=== PATIENT | female | born 1965 | race Caucasian/White ===

== ENCOUNTER 2019-09-24 08:45 | Emergency (ER) | payer MEDICAID ==
[~2019-09-24] VITALS: Ht 157.5 cm; Wt 60.0 kg
[2019-09-24] MEDS ORDERED: IV NORMAL SALINE 500ML BAG 500 ML IV ONE (09:15)
[2019-09-24 09:31] LABS: BASO # 0.1 x10^3/uL (0.0-0.2); BASO % 0 % (0-3); EOS % 0 % (0-3); HEMATOCRIT 37.3 % (36.0-47.0); HEMOGLOBIN 12.1 g/dL (12.0-15.5); LYMPH # 3.2 x10^3/uL (1.0-4.8); LYMPH % 17 % (24-48); MEAN CORPUSCULAR HEMOGLOBIN 31 pg (25-35); MEAN CORPUSCULAR HGB CONC 32 g/dL (31-37); MEAN CORPUSCULAR VOLUME 94 fL (79-100); MONO # 2.3 x10^3/uL (0.0-1.1); MONO % 12 % (0-9); NEUT # 13.8 x10^3/uL (1.8-7.7); NEUT % 71 % (31-73); PLATELET COUNT 566 x10^3/uL (140-400); RED BLOOD COUNT 3.96 x10^6/uL (3.50-5.40); RED CELL DISTRIBUTION WIDTH 16.1 % (11.5-14.5); WHITE BLOOD COUNT 19.5 x10^3/uL (4.0-11.0)
[2019-09-24 09:37] LABS: CALCIUM 8.7 mg/dL (8.5-10.1); CREATININE 0.8 mg/dL (0.6-1.0); POTASSIUM 4.3 mmol/L (3.5-5.1)
--- NOTE | 2019-09-24 10:03 | PHYS DOC ---
Past Medical History Past Medical History: Diabetes-Type II, High Cholesterol, Hypothyroid, Seizure Past Surgical History: Other Additional Past Surgical Histo: unknown Smoking Status: Never Smoker Alcohol Use: None General Adult EDM: Chief Complaint: SEIZURE HPI: HPI: Patient is a 54-year-old female from [facility] who has a history of seizure disorder who had a brief seizure this morning. She has been taking her seizure medicine. She has been more anxious than normal lately. She has had no fever. She has been tested positive for COVID-19 at some time in the recent past. Review of Systems: Review of Systems: Review of systems is unobtainable secondary to the altered mental status of the patient at baseline [] Heart Score: Risk Factors: Risk Factors: DM, Current or recent (<one month) smoker, HTN, HLP, family history of CAD, obesity. Risk Scores: Score 0 - 3: 2.5% MACE over next 6 weeks - Discharge Home Score 4 - 6: 20.3% MACE over next 6 weeks - Admit for Clinical Observation Score 7 - 10: 72.7% MACE over next 6 weeks - Early Invasive Strategies Current Medications: Current Medications Medications (Trade) Dose Ordered Sig/Bo Start Time Stop Time Status Last Admin Dose Admin Sodium Chloride 500 ml @ 500 mls/hr 1X ONCE 09/24/19 09:15 09/24/19 10:14 09/24/19 09:33 500 MLS/HR Allergies: Allergies: Allergies Coded Allergies Type Severity Reaction Last Updated Verified Iodinated Contrast Media Allergy Unknown 09/24/19 Yes iodine Allergy Unknown 09/24/19 Yes simvastatin Allergy Unknown 09/24/19 Yes Physical Exam: PE: Constitutional: Well developed, well nourished, no acute distress, non-toxic appearance. [] HENT: Normocephalic, atraumatic, bilateral external ears normal, oropharynx moist, no oral exudates, nose normal. [] Eyes: PERRLA, EOMI, conjunctiva normal, no discharge. [] Neck: Normal range of motion, no tenderness, supple, no stridor. [] Cardiovascular:Heart rate regular rhythm, no murmur [] Lungs & Thorax: Bilateral breath sounds clear to auscultation [] Abdomen: Bowel sounds normal, soft, no tenderness, no masses, no pulsatile john s. [] Skin: Warm, dry, no erythema, no rash. [] Back: No tenderness, no CVA tenderness. [] Extremities: No tenderness, no cyanosis, no clubbing, ROM intact, no edema. [] Neurologic: Alert no distress, normal motor function, normal sensory function, no focal deficits noted. [] Psychologic: Very anxious. [] Current Patient Data: Labs: Laboratory Tests Test 09/24/19 08:50 09/24/19 09:15 Glucose (Fingerstick) 97 mg/dL (70-99) White Blood Count 19.5 x10^3/uL (4.0-11.0) H Red Blood Count 3.96 x10^6/uL (3.50-5.40) Hemoglobin 12.1 g/dL (12.0-15.5) Hematocrit 37.3 % (36.0-47.0) Mean Corpuscular Volume 94 fL (79-100) Mean Corpuscular Hemoglobin 31 pg (25-35) Mean Corpuscular Hemoglobin Concent 32 g/dL (31-37) Red Cell Distribution Width 16.1 % (11.5-14.5) H Platelet Count 566 x10^3/uL (140-400) H Neutrophils (%) (Auto) 71 % (31-73) Lymphocytes (%) (Auto) 17 % (24-48) L Monocytes (%) (Auto) 12 % (0-9) H Eosinophils (%) (Auto) 0 % (0-3) Basophils (%) (Auto) 0 % (0-3) Neutrophils # (Auto) 13.8 x10^3/uL (1.8-7.7) H Lymphocytes # (Auto) 3.2 x10^3/uL (1.0-4.8) Monocytes # (Auto) 2.3 x10^3/uL (0.0-1.1) H Eosinophils # (Auto) 0.0 x10^3/uL (0.0-0.7) Basophils # (Auto) 0.1 x10^3/uL (0.0-0.2) Platelet Estimate Pending Sodium Level 138 mmol/L (136-145) Potassium Level 4.3 mmol/L (3.5-5.1) Chloride Level 98 mmol/L (98-107) Carbon Dioxide Level 33 mmol/L (21-32) H Anion Gap 7 (6-14) Blood Urea Nitrogen 18 mg/dL (7-20) Creatinine 0.8 mg/dL (0.6-1.0) Estimated GFR (Cockcroft-Gault) 75.0 Glucose Level 114 mg/dL (70-99) H Calcium Level 8.7 mg/dL (8.5-10.1) Laboratory Tests 09/24/19 09:15 Laboratory Tests 09/24/19 09:15 Vital Signs: Vital Signs Date Time Temp Pulse Resp B/P (MAP) Pulse Ox O2 Delivery O2 Flow Rate FiO2 09/24/19 08:45 99.1 126 16 143/72 (95) 96 Room Air 99.1 EKG: EKG: [] Radiology/Procedures: Radiology/Procedures: [] Course & Med Decision Making: Course & Med Decision Making Pertinent Labs and Imaging studies reviewed. (See chart for details) [] Dragon Disclaimer: Dragon Disclaimer: This electronic medical record was generated, in whole or in part, using a voice recognition dictation system. Departure Departure Impression: Primary Impression: Seizure Disposition: 01 HOME, SELF-CARE Condition: STABLE Patient Instructions: Seizure, Adult Additional Instructions: Return to the emergency department with any new or concerning symptoms SHAWN VALENTION DO September 24, 2019 10:03
[2019-09-24 10:17] LABS: % BANDS 4 % (0-9); % LYMPHS 22 % (24-48); % MONOS 8 % (0-10); % MYELOS 1 % (0-0); % SEGS 65 % (35-66); ANISOCYTOSIS PRESENT; PLT ESTIMATE INCREASED (ADEQUATE)
[2019-09-24 10:18] LABS: POLYCHROMASIA PRESENT
[2019-09-24 10:46] VITALS: BP 136/78
== END 2019-09-24 12:45 | disposition home or self-care (01) ==
LOC: ER 08:45
DX: G40.909 Epilepsy, unspecified, not intractable, without status epilepticus (principal); R41.82 Altered mental status, unspecified; E11.9 Type 2 diabetes mellitus without complications; E78.00 Pure hypercholesterolemia, unspecified; E03.9 Hypothyroidism, unspecified; Z88.1 Allergy status to other antibiotic agents; Z88.8 Allergy status to other drugs, medicaments and biological substances
CPT/HCPCS: 36415; 80048; 82962; 85007; 85025; 96360; 99284; J7040

== ENCOUNTER 2020-01-18 18:25 | Emergency (ER) | payer BC, MEDICAID ==
[~2020-01-18] VITALS: Ht 162.6 cm; Wt 54.5 kg
[2020-01-18 19:07] LABS: BASO % 1 % (0-3); EOS % 0 % (0-3); HEMATOCRIT 36.7 % (36.0-47.0); HEMOGLOBIN 12.5 g/dL (12.0-15.5); LYMPH # 2.4 x10^3/uL (1.0-4.8); LYMPH % 38 % (24-48); MEAN CORPUSCULAR HEMOGLOBIN 32 pg (25-35); MEAN CORPUSCULAR HGB CONC 34 g/dL (31-37); MEAN CORPUSCULAR VOLUME 95 fL (79-100); MONO # 0.7 x10^3/uL (0.0-1.1); MONO % 11 % (0-9); NEUT # 3.3 x10^3/uL (1.8-7.7); NEUT % 51 % (31-73); PLATELET COUNT 338 x10^3/uL (140-400); RED BLOOD COUNT 3.89 x10^6/uL (3.50-5.40); WHITE BLOOD COUNT 6.5 x10^3/uL (4.0-11.0)
[2020-01-18 19:14] LABS: ANION GAP 8 (6-14); BLOOD UREA NITROGEN 19 mg/dL (7-20); CALCIUM 9.1 mg/dL (8.5-10.1); CARBON DIOXIDE 30 mmol/L (21-32); CHLORIDE 100 mmol/L (98-107); CREATININE 0.9 mg/dL (0.6-1.0); GFR 65.5; GLUCOSE 188 mg/dL (70-99); POTASSIUM 4.3 mmol/L (3.5-5.1); SODIUM 138 mmol/L (136-145)
--- NOTE | 2020-01-18 20:36 | RAD ---
Exam: Chest one view INDICATION: Seizures TECHNIQUE: Frontal view of the chest Comparisons: None FINDINGS: The cardiomediastinal silhouette and pulmonary vessels are within normal limits. The lung and pleural spaces are clear. IMPRESSION: No acute cardiopulmonary process. Electronically signed by: Anoop Castro MD (01/18/2020 8:33 PM) [id number]
--- NOTE | 2020-01-18 20:39 | PHYS DOC ---
Past Medical History Past Medical History: Diabetes-Type II, High Cholesterol, Hypothyroid, Seizure, Other Additional Past Medical Histor: Behavioral, Intellectual Disabilities Past Surgical History: Other Additional Past Surgical Histo: unknown Smoking Status: Never Smoker Alcohol Use: None General Adult EDM: Chief Complaint: MECHANICAL FALL HPI: HPI: The history was obtained from the patient and EMS. Patient is a 54-year-old female with H intellectual disability, seizure disorder, hyperlipidemia who presents with a chief complaint of seizure-like activity. Per EMS patient had a witnessed one 2-minute seizure episode. She does have a history of seizures. She does take valproic acid daily. EMS states that the patient does appear to be at her baseline. No medications administered prior to arrival. Patient states she has no complaints. She denies headache or fever. No abdominal pain or chest pain. Denies shortness of breath. States that she just wants to go back to her facility. Per EMS and staff in the emergency department patient is mentating at her baseline. Review of Systems: Review of Systems: Constitutional: Denies fever or chills. [] Eyes: Denies change in visual acuity. [] HENT: Denies nasal congestion or sore throat. [] Respiratory: Denies cough or shortness of breath. [] Cardiovascular: Denies chest pain or edema. [] GI: Denies abdominal pain, nausea, vomiting, bloody stools or diarrhea. [] : Denies dysuria. [] Musculoskeletal: Denies back pain or joint pain. [] Integument: Denies rash. [] Neurologic: Positive for seizures Endocrine: Denies polyuria or polydipsia. [] Lymphatic: Denies swollen glands. [] Psychiatric: Denies depression or anxiety. [] Heart Score: Risk Factors: Risk Factors: DM, Current or recent (<one month) smoker, HTN, HLP, family history of CAD, obesity. Risk Scores: Score 0 - 3: 2.5% MACE over next 6 weeks - Discharge Home Score 4 - 6: 20.3% MACE over next 6 weeks - Admit for Clinical Observation Score 7 - 10: 72.7% MACE over next 6 weeks - Early Invasive Strategies Allergies: Allergies: Allergies Coded Allergies Type Severity Reaction Last Updated Verified Iodinated Contrast Media Allergy Unknown 09/24/19 Yes iodine Allergy Unknown 09/24/19 Yes simvastatin Allergy Unknown 09/24/19 Yes Physical Exam: PE: Constitutional: Well developed, well nourished, no acute distress, non-toxic appearance. [] HENT: Normocephalic, atraumatic, bilateral external ears normal, oropharynx moist, no oral exudates, nose normal. [] Eyes: PERRLA, EOMI, conjunctiva normal, no discharge. [] Neck: Normal range of motion, no tenderness, supple, no stridor. [] Cardiovascular:Heart rate regular rhythm, no murmur [] Lungs & Thorax: Bilateral breath sounds clear to auscultation [] Abdomen: soft, no tenderness, no masses, no pulsatile masses. [] Skin: Warm, dry, no erythema, no rash. [] Back: No tenderness, no CVA tenderness. [] Extremities: No tenderness, no cyanosis, no clubbing, ROM intact, no edema. [] Neurologic: Alert with intact cognitive function. No aphasia, dysarthria, or neglect. GCS 14. Pupils 3 mm briskly reactive b/l. No APD present. Cranial nerves 2-12 grossly intact; no facial asymmetry present, tongue midline, shoulder shrugging strength intact. Strength 5/5 and symmetric throughout. Light touch sensation intact throughout. Cerebellar testing appropriate without evidence of dysdiadochokinesia. DTR's 2+ in all 4 extremities. Negative pronator drift bilaterally. Psychologic: Affect normal, judgement normal, mood normal. [] Current Patient Data: Labs: Laboratory Tests Test 01/18/20 18:46 01/18/20 19:00 Glucose (Fingerstick) 166 mg/dL (70-99) H White Blood Count 6.5 x10^3/uL (4.0-11.0) Red Blood Count 3.89 x10^6/uL (3.50-5.40) Hemoglobin 12.5 g/dL (12.0-15.5) Hematocrit 36.7 % (36.0-47.0) Mean Corpuscular Volume 95 fL (79-100) Mean Corpuscular Hemoglobin 32 pg (25-35) Mean Corpuscular Hemoglobin Concent 34 g/dL (31-37) Red Cell Distribution Width 15.0 % (11.5-14.5) H Platelet Count 338 x10^3/uL (140-400) Neutrophils (%) (Auto) 51 % (31-73) Lymphocytes (%) (Auto) 38 % (24-48) Monocytes (%) (Auto) 11 % (0-9) H Eosinophils (%) (Auto) 0 % (0-3) Basophils (%) (Auto) 1 % (0-3) Neutrophils # (Auto) 3.3 x10^3/uL (1.8-7.7) Lymphocytes # (Auto) 2.4 x10^3/uL (1.0-4.8) Monocytes # (Auto) 0.7 x10^3/uL (0.0-1.1) Eosinophils # (Auto) 0.0 x10^3/uL (0.0-0.7) Basophils # (Auto) 0.0 x10^3/uL (0.0-0.2) Sodium Level 138 mmol/L (136-145) Potassium Level 4.3 mmol/L (3.5-5.1) Chloride Level 100 mmol/L (98-107) Carbon Dioxide Level 30 mmol/L (21-32) Anion Gap 8 (6-14) Blood Urea Nitrogen 19 mg/dL (7-20) Creatinine 0.9 mg/dL (0.6-1.0) Estimated GFR (Cockcroft-Gault) 65.5 Glucose Level 188 mg/dL (70-99) H Calcium Level 9.1 mg/dL (8.5-10.1) Valproic Acid Level mcg/mL (50-100) Valproic Acid Last Dose Date 01/18/20 Valproic Acid Last Dose Time 1200 Laboratory Tests 01/18/20 19:00 Laboratory Tests 01/18/20 19:00 Vital Signs: Vital Signs Date Time Temp Pulse Resp B/P (MAP) Pulse Ox O2 Delivery O2 Flow Rate FiO2 01/18/20 18:25 97.6 105 19 162/88 (112) 100 Room Air 97.6 EKG: EKG: [] EKG consistent with sinus tachycardia. Ventricular rate of 107 bpm. [place] normal. Intervals grossly normal. Slight artifact noted in the inferior leads. No obvious ischemic changes appreciated. Radiology/Procedures: Radiology/Procedures: [] Course & Med Decision Making: Course & Med Decision Making Pertinent Labs and Imaging studies reviewed. (See chart for details) [] Patient is a 54-year-old female with a known seizure disorder who presents with chief complaint of seizure. Initial vital signs unremarkable. Exam overall reassuring. Patient does appear to be mentating at her baseline. Basic labs were obtained and were grossly unremarkable. Given the patient is men tating at her baseline and shows no signs of external trauma I do feel it is reasonable to defer advanced imaging. She does have history known seizure disorder and does appear to be back at her baseline. No concerning features regarding seizure reported. At this time patient is appropriate for discharge home back to her assisted living facility. Return precautions were discussed and understood. Patient is in agreement with this plan. Stable for discharge home. Dragon Disclaimer: [employer] Disclaimer: This electronic medical record was generated, in whole or in part, using a voice recognition dictation system. Departure Departure Impression: Primary Impression: Seizure Disposition: 01 HOME, SELF-CARE Condition: STABLE Referrals: NON,STAFF (PCP) Patient Instructions: Seizure, Adult Additional Instructions: Please follow-up with your primary care physician in the next 2 to 3 days. Justicifation of Admission Dx: Justifications for Admission: Justification of Admission Dx: N/A STACY FRASER DO Jan 18, 2020 20:39
[2020-01-18 21:50] VITALS: BP 148/76
--- NOTE | 2020-01-19 07:22 | EKG ---
[facility] [address] [place] [address] Test Date: 2020-01-18 Test Time: 18:39:33 Pat Name: CINDY HARVEY Department: Room: Gender: F Staff Scientist: : 1965 Requested By: STACY FRASER Order Number: [id number] Reading MD: Measurements Intervals [place] Rate: 107 P: 89 [place]: 150 QRS: 46 QRSD: 70 T: 50 QT: 332 QTc: 449 Interpretive Statements SINUS TACHYCARDIA OTHERWISE NORMAL ECG RI6.02 No previous ECG available for comparison
== END 2020-01-18 22:41 | disposition home or self-care (01) ==
LOC: ER 18:25
DX: G40.909 Epilepsy, unspecified, not intractable, without status epilepticus (principal); E11.9 Type 2 diabetes mellitus without complications; E78.00 Pure hypercholesterolemia, unspecified; E03.9 Hypothyroidism, unspecified; Z98.890 Other specified postprocedural states; Z88.1 Allergy status to other antibiotic agents; Z91.041 Radiographic dye allergy status
CPT/HCPCS: 36415; 71045; 80048; 80164; 82962; 85025; 93005; 99285

== ENCOUNTER 2020-06-11 07:55 | Emergency (ER) | payer BC, MEDICAID ==
[~2020-06-11] VITALS: Ht 165.1 cm; Wt 55.0 kg
[2020-06-11] MEDS ORDERED: HALOPERIDOL LACTATE 5 MG/ML VIAL. ONE (08:09)
--- NOTE | 2020-06-11 08:14 | ED.ADGEN ---
Past Medical History Past Medical History: Diabetes-Type II, High Cholesterol, Hypothyroid, Seizure, Other Additional Past Medical Histor: Behavioral, Intellectual Disabilities Past Surgical History: Other Additional Past Surgical Histo: unknown Smoking Status: Never Smoker Alcohol Use: None General Adult EDM: Chief Complaint: MECHANICAL FALL HPI: HPI: Patient is a 55-year-old female who arrives via EMS after reportedly sustaining an unwitnessed fall. Patient is a resident of a snf and has a baseline level of functioning which is inherently combative as reported by staff at her residence. Patient is also reported to suffer from developmental delay. The patient did arrive in a c-collar for C-spine protection. Otherwise the patient does not provide history as she is combative and uncooperative. There are no external signs of trauma otherwise. She is awake, alert and at her reported baseline. Review of Systems: Review of Systems: Unable to obtain given the patient's combative behavior. Family History: Family History: Unknown Current Medications: Current Medications Medications (Trade) Dose Ordered Sig/Bo Start Time Stop Time Status Last Admin Dose Admin Haloperidol Lactate (Haldol Inj) 5 mg STK-MED ONCE 06/11/20 08:09 06/11/20 08:09 DC Ziprasidone (Geodon Im) 20 mg 1X ONCE 06/11/20 09:00 06/11/20 09:01 DC 06/11/20 08:53 20 MG Allergies: Allergies: Allergies Coded Allergies Type Severity Reaction Last Updated Verified Iodinated Contrast Media Allergy Unknown 09/24/19 Yes iodine Allergy Unknown 09/24/19 Yes simvastatin Allergy Unknown 09/24/19 Yes Physical Exam: PE: Constitutional: Well developed, well nourished, no acute distress, non-toxic appearance. [] HENT: Normocephalic, atraumatic, bilateral external ears normal, oropharynx moist, no oral exudates, nose normal. [] Eyes: PERRLA, EOMI, conjunctiva normal, no discharge. [] Neck: C-collar in place. no tenderness, supple, no stridor. [] Cardiovascular:Heart rate regular rhythm, no murmur [] Lungs & Thorax: Bilateral breath sounds clear to auscultation [] Abdomen: Bowel sounds normal, soft, no tenderness, no masses, no pulsatile masses. [] Skin: Warm, dry, no erythema, no rash. [] Back: No tenderness, no CVA tenderness. [] Extremities: No tenderness, no cyanosis, no clubbing, ROM intact, no edema. [] Neurologic: Alert and oriented X 3, normal motor function, normal sensory function, no focal deficits noted. [] Psychologic: The patient is verbally abusive and combative. She does not appear to be under the influence of any illicit substances. Current Patient Data: Labs: Laboratory Tests Test 06/11/20 09:20 06/11/20 09:45 White Blood Count 10.5 x10^3/uL (4.0-11.0) Red Blood Count 4.21 x10^6/uL (3.50-5.40) Hemoglobin 12.7 g/dL (12.0-15.5) Hematocrit 37.8 % (36.0-47.0) Mean Corpuscular Volume 90 fL (79-100) Mean Corpuscular Hemoglobin 30 pg (25-35) Mean Corpuscular Hemoglobin Concent 34 g/dL (31-37) Red Cell Distribution Width 13.8 % (11.5-14.5) Platelet Count 412 x10^3/uL (140-400) H Neutrophils (%) (Auto) 71 % (31-73) Lymphocytes (%) (Auto) 18 % (24-48) L Monocytes (%) (Auto) 10 % (0-9) H Eosinophils (%) (Auto) 0 % (0-3) Basophils (%) (Auto) 0 % (0-3) Neutrophils # (Auto) 7.4 x10^3/uL (1.8-7.7) Lymphocytes # (Auto) 1.9 x10^3/uL (1.0-4.8) Monocytes # (Auto) 1.1 x10^3/uL (0.0-1.1) Eosinophils # (Auto) 0.0 x10^3/uL (0.0-0.7) Basophils # (Auto) 0.0 x10^3/uL (0.0-0.2) Sodium Level 141 mmol/L (136-145) Potassium Level 3.7 mmol/L (3.5-5.1) Chloride Level 101 mmol/L (98-107) Carbon Dioxide Level 24 mmol/L (21-32) Anion Gap 16 (6-14) H Blood Urea Nitrogen 14 mg/dL (7-20) Creatinine 0.9 mg/dL (0.6-1.0) Estimated GFR (Cockcroft-Gault) 65.2 BUN/Creatinine Ratio 16 (6-20) Glucose Level 160 mg/dL (70-99) H Calcium Level 9.8 mg/dL (8.5-10.1) Total Bilirubin 0.5 mg/dL (0.2-1.0) Aspartate Amino Transferase (AST) 27 U/L (15-37) Alanine Aminotransferase (ALT) 33 U/L (14-59) Alkaline Phosphatase 191 U/L (46-116) H Troponin I Quantitative < 0.017 ng/mL (0.000-0.055) Total Protein 7.5 g/dL (6.4-8.2) Albumin 3.5 g/dL (3.4-5.0) Albumin/Globulin Ratio 0.9 (1.0-1.7) L Urine Opiates Screen Neg (NEG) Urine Methadone Screen Neg (NEG) Urine Barbiturates Neg (NEG) Urine Phencyclidine Screen Neg (NEG) Urine Amphetamine/Methamphetamine Neg (NEG) Urine Benzodiazepines Screen Neg (NEG) Urine Cocaine Screen Neg (NEG) Urine Cannabinoids Screen Neg (NEG) Urine Ethyl Alcohol Neg (NEG) Laboratory Tests 06/11/20 09:20 Laboratory Tests 06/11/20 09:20 Vital Signs: Vital Signs Date Time Temp Pulse Resp B/P (MAP) Pulse Ox O2 Delivery O2 Flow Rate FiO2 06/11/20 10:47 113 20 100 06/11/20 08:01 148/76 (100) EKG: EKG: EKG was obtained at 1219 hrs which revealed a sinus tachycardia with a ve ntricular rate of 120 bpm. There are nonspecific ST wave changes with considerable ectopy. It is worth noting the patient was agitated during this tracing. [] Heart Score: HEART Score for Chest Pain: HEART Score for Chest Pain Response (Comments) Value History Slighlty/Non-Suspicious 0 ECG Normal 0 Age >45 - < 65 1 Risk Factors 1 or 2 Risk Factors 1 Troponin < Normal Limit 0 Total 2 Risk Factors: Risk Factors: DM, Current or recent (<one month) smoker, HTN, HLP, family history of CAD, obesity. Risk Scores: Score 0 - 3: 2.5% MACE over next 6 weeks - Discharge Home Score 4 - 6: 20.3% MACE over next 6 weeks - Admit for Clinical Observation Score 7 - 10: 72.7% MACE over next 6 weeks - Early Invasive Strategies Radiology/Procedures: Radiology/Procedures: [] Impression: [facility] [address] [place] [address] IMAGING REPORT Signed PATIENT: CINDY HARVEY ACCOUNT: [id number] : 1965 LOCATION: ER AGE: 55 SEX: F EXAM STATUS: REG ER ORD. PHYSICIAN: LAURY CAMP DO REASON: ams,ALSO CT PROCEDURE: PORTABLE CHEST 1V XR CHEST 1V History: Reason: ams Comparison: January 18, 2020 Findings: Patchy right basilar opacity. No pleural effusion. No pneumothorax. Right upper lobe 4 mm nodule, unchanged. Impression: 1. Patchy right basilar opacity, most likely atelectasis. If persistent clinical concern, PA and lateral view the chest can better assess. 2. Right upper lobe nodule, unchanged. Recommend continued follow-up. Electronically signed by: Pieter Sin DO (06/11/2020 10:12 AM) [id number] DICTATED and SIGNED BY: PIETER SIN DO DATE: 06/11/20 [id number] [facility] [address] [facility] [place] [address] IMAGING REPORT Signed PATIENT: CINDY HARVEY ACCOUNT: [id number] : 1965 LOCATION: ER AGE: 55 SEX: F EXAM STATUS: REG ER ORD. PHYSICIAN: LAURY CAMP DO REASON: trauma. PT NOT STABLE FOR IMAGING,, NURSE TO CALL. NC PROCEDURE: CT HEAD AND CERVICAL SPINE WO Exam performed: CT scan of the head and cervical spine without contrast. Date of Service: 06/11/2020 Comparison:None available Clinical History: Trauma Technique: Helical acquisitions are obtained from the foramen magnum to the vertex without intravenous administration of contrast. In addition helical acquisitions are obtained through the cervical spine. Sagittal and coronal reformatted images are obtained and reviewed. CT scan head findings: Prominence of cortical sulci and ventricular system is noted consistent with age-related atrophy. There are areas of low-attenuation in both periventricular and subcortical deep white matter persisting small vessel ischemic changes. Normal atkins-white differentiation is maintained. There is no extra axial fluid collection, intraparenchymal hemorrhage or mass lesion. The visualized orbits, paranasal sinuses and the mastoid air cells are clear. The calvarium is intact. Impression: 1. Mild atrophy.. 2.No acute intracranial process detected. End Impression. CT cervical spine findings: Slight reversal of cervical curvature likely positional.. Cranio cervical and C1-2 articulation is preserved. The vertebral body heights are maintained. There is narrowing of C4/5, C5/6 and C6/7 as well as C7/T1 intravertebral disc spaces with diffuse osteophytic spurring. Small well-corticated ossific fragment in relation to the spinous process of C4 vertebral body appears chronic. There is no wayne or retrolisthesis. There are no acute fractures. There is no perching of facets. No prevertebral soft tissue swelling is identified. .No definite lymphadenopathy or masses are seen within the neck. The visualized thyroid and salivary glands appears preserved. Axial imaging through there is intervertebral disc levels demonstrate mild disc degenerative changes. No evidence of high- grade central canal or neural foramen stenosis is identified. Impression: 1. No acute abnormality seen in the CT scan cervical spine. 2. Spondylotic changes and multilevel disc degenerative changes are present as outlined above. PQRS Compliance Statement: One or more of the following individualized dose reduction techniques were utilized for this examination: 1. Automated exposure control 2. Adjustment of the mA and/or kV according to patient size 3. Use of iterative reconstruction technique Electronically signed by: Valerie Eller MD (06/11/2020 11:42 AM) [facility] DICTATED and SIGNED BY: VALERIE ELLER MD DATE: 06/11/20 [id number] 0 Course & Med Decision Making: Course & Med Decision Making Pertinent Labs and Imaging studies reviewed. (See chart for details) The patient was initially was very agitated upon my initial visit. Nursing staff in the emergency department did speak with the residential staff where the patient lives and it was communicated the patient is generally combative. Haldol was initially given which had no effect. This was followed by Kj which after some time the patient did relax and is now sleeping well maintaining her airway without difficulty. Imaging was performed and did not show any acute abnormality as it relates to any history of a fall. While the patient did arrive in a c-collar she took this off and we were unable to replace it. Labs were reviewed did not show any glaring abnormalities. Fortunately the patient appears to have not sustained any injuries from her fall. She is nontoxic- appearing and stable for discharge. She will be transported not emergently back to her residence. [] Dragon Disclaimer: Dragon Disclaimer: This electronic medical record was generated, in whole or in part, using a voice recognition dictation system. Departure Departure Impression: Primary Impression: Examination following fall from height with no apparent injury Disposition: 01 DC HOME SELF CARE/HOMELESS Condition: GOOD Referrals: NON,STAFF (PCP) Patient Instructions: Fall Prevention and Home Safety LAURY CAMP DO Jun 11, 2020 08:14
[2020-06-11] MEDS ORDERED: HALOPERIDOL LACTATE 5 MG/ML VIAL. IM ONE (08:30)
[2020-06-11] MEDS ORDERED: ZIPRASIDONE IM 20 MG VIAL. IM ONE (09:00)
[2020-06-11 09:38] LABS: BASO % 0 % (0-3); EOS % 0 % (0-3); HEMATOCRIT 37.8 % (36.0-47.0); HEMOGLOBIN 12.7 g/dL (12.0-15.5); LYMPH # 1.9 x10^3/uL (1.0-4.8); LYMPH % 18 % (24-48); MEAN CORPUSCULAR HEMOGLOBIN 30 pg (25-35); MEAN CORPUSCULAR HGB CONC 34 g/dL (31-37); MEAN CORPUSCULAR VOLUME 90 fL (79-100); MONO # 1.1 x10^3/uL (0.0-1.1); MONO % 10 % (0-9); NEUT # 7.4 x10^3/uL (1.8-7.7); NEUT % 71 % (31-73); PLATELET COUNT 412 x10^3/uL (140-400); RED BLOOD COUNT 4.21 x10^6/uL (3.50-5.40); RED CELL DISTRIBUTION WIDTH 13.8 % (11.5-14.5); WHITE BLOOD COUNT 10.5 x10^3/uL (4.0-11.0)
[2020-06-11 10:03] LABS: ALBUMIN 3.5 g/dL (3.4-5.0); ALBUMIN/GLOBULIN RATIO 0.9 (1.0-1.7); CALCIUM 9.8 mg/dL (8.5-10.1); CREATININE 0.9 mg/dL (0.6-1.0); GFR 65.2; TOTAL BILIRUBIN 0.5 mg/dL (0.2-1.0); TOTAL PROTEIN 7.5 g/dL (6.4-8.2)
[2020-06-11 10:08] LABS: BARBITURATES NEG (NEG); BENZODIAZEPINES NEG (NEG); CANNABINOIDS NEG (NEG); COCAINE NEG (NEG); METHADONE NEG (NEG); OPIATES NEG (NEG); PHENCYCLIDINE NEG (NEG)
[2020-06-11 10:13] LABS: AMPHETAMINE/METHAMPHETAMINE NEG (NEG)
--- NOTE | 2020-06-11 10:14 | RAD ---
XR CHEST 1V History: Reason: ams Comparison: January 18, 2020 Findings: Patchy right basilar opacity. No pleural effusion. No pneumothorax. Right upper lobe 4 mm nodule, unc hanged. Impression: 1. Patchy right basilar opacity, most likely atelectasis. If persistent clinical concern, PA and lat eral view the chest can better assess. 2. Right upper lobe nodule, unchanged. Recommend continued follow-up. Electronically signed by: Pieter Sin DO (06/11/2020 10:12 AM) [id number]
[2020-06-11 10:31] LABS: POTASSIUM 3.7 mmol/L (3.5-5.1)
--- NOTE | 2020-06-11 11:45 | RAD ---
Exam performed: CT scan of the head and cervical spine without contrast. Date of Service: 06/11/2020 Comparison:None available Clinical History: Trauma Technique: Helical acquisitions are obtained from the foramen magnum to the vertex without intravenou s administration of contrast. In addition helical acquisitions are obtained through the cervical spin e. Sagittal and coronal reformatted images are obtained and reviewed. CT scan head findings: Prominence of cortical sulci and ventricular system is noted consistent with age-related atrophy. The re are areas of low-attenuation in both periventricular and subcortical deep white matter persisting small vessel ischemic changes. Normal atkins-white differentiation is maintained. There is no extra ax ial fluid collection, intraparenchymal hemorrhage or mass lesion. The visualized orbits, paranasal s inuses and the mastoid air cells are clear. The calvarium is intact. Impression: 1. Mild atrophy.. 2.No acute intracranial process detected. End Impression. CT cervical spine findings: Slight reversal of cervical curvature likely positional.. Cranio cervical and C1-2 articulation is pr eserved. The vertebral body heights are maintained. There is narrowing of C4/5, C5/6 and C6/7 as well as C7/T1 intravertebral disc spaces with diffuse osteophytic spurring. Small well-corticated ossific fragment in relation to the spinous process of C4 vertebral body appears chronic. There is no wayne or retrolisthesis. There are no acute fractures. There is no perching of facets. No prevertebral sof t tissue swelling is identified. .No definite lymphadenopathy or masses are seen within the neck. Th e visualized thyroid and salivary glands appears preserved. Axial imaging through there is interverte bral disc levels demonstrate mild disc degenerative changes. No evidence of high-grade central canal or neural foramen stenosis is identified. Impression: 1. No acute abnormality seen in the CT scan cervical spine. 2. Spondylotic changes and multilevel disc degenerative changes are present as outlined above. PQRS Compliance Statement: One or more of the following individualized dose reduction techniques were utilized for this examinat ion: 1. Automated exposure control 2. Adjustment of the mA and/or kV according to patient size 3. Use of iterative reconstruction technique Electronically signed by: Valerie Eller MD (06/11/2020 11:42 AM) [facility]ITALMarlene
[2020-06-11 12:19] VITALS: BP 190/98
== END 2020-06-11 12:25 | disposition home or self-care (01) ==
LOC: ER 07:55
DX: R62.50 Unspecified lack of expected normal physiological development in childhood (principal); G31.9 Degenerative disease of nervous system, unspecified; R07.89 Other chest pain; R00.0 Tachycardia, unspecified; E11.9 Type 2 diabetes mellitus without complications; E78.00 Pure hypercholesterolemia, unspecified; E03.9 Hypothyroidism, unspecified; G89.11 Acute pain due to trauma; Z88.8 Allergy status to other drugs, medicaments and biological substances; W18.39XA Other fall on same level, initial encounter; Y93.89 Activity, other specified; Y92.89 Other specified places as the place of occurrence of the external cause; Y99.8 Other external cause status; Z91.041 Radiographic dye allergy status
CPT/HCPCS: 36415; 70450; 71045; 72125; 80053; 80307; 84484; 85025; 96372; 99285; J1630; J3486; 93005